=== PATIENT | male | born 1945 | race Caucasian/White ===

== ENCOUNTER 2017-08-14 23:01 | Observation (INO) | payer OTHER, BC ==
[~2017-08-14] VITALS: Ht 170.2 cm; Wt 79.5 kg
[2017-08-14 23:03] VITALS: Ht 170.2 cm; Wt 79.5 kg
[2017-08-14] MEDS ORDERED: SODIUM CHLORIDE 0.9% 500ML 500 ML IV STA (23:31)
--- NOTE | 2017-08-14 23:31 | EMERGENCY ROOM VISIT NOTE ---
History Report prepared by Christophe: Paul Madden Under the Supervision of: Dr. Edith Barone D.O. First contact with patient: 23:10 Chief Complaint: HEMATURIA Stated Complaint: BLEEDING FROM URETHRA History of Present Illness The patient is a 71 year old male who presents to the Emergency Room with complaints of intermittent hematuria beginning yesterday. The patient states that he had a TUNA procedure done 10 years ago. He notes that since then, he has intermittent hematuria when he exerts himself. He reports that the spotting typically stops on its own shortly after he stops taking his aspirin. The patient states that he also had prostate surgery 5 years ago. He notes that all last week, he had some spotting, but he reports that he has been urinating large amounts of blood since he had to push a heavy cart yesterday. The patient states that he feels as though he has to urinate, but is unable to produce large amounts of urine. He notes that he was passing clots last night, which caused him some pain, but has not passed any tonight. He reports that he has also been catheterizing himself intermittently in order to urinate, but states that tonight nothing came out of the catheter. He notes that when he pulled the catheter out, he urinated a little bit reports but that it was mostly blood. The patient states that his current symptoms feel different than they usually do. He notes that he is feeling more bloated than usual. He reports that he has a history of open heart surgery, but denies any history of urinary infections, kidney problems, and has never had to have his bladder irrigated. Pt denies dizziness, lightheadedness, headache, change in vision, fevers, chills, chest pain, shortness of breath, back pain, abdominal pain, nausea, vomiting, change in bowel movements, diarrhea, and melena. Patient states he takes an aspirin daily, no other anticoagulation. Last dose of aspirin was yesterday. Source of History: patient Onset: yesterday Position: other (penis) Quality: other (hematuria) Timing: intermittent Associated Symptoms: No fevers, No chills, No headache, No chest pain, No SOB, No nausea, No vomiting, No abdominal pain, No back pain, No melena, No diarrhea Note: The patient states that he feels as though he has to urinate but is unable to produce large amounts of urine and has been occasionally passing clots. He denies any dizziness, lightheadedness, change in vision, and change in bowel movements. Review of Systems See HPI for pertinent positives & negatives. A total of 10 systems reviewed and were otherwise negative. Past Medical & Surgical Surgical Problems: (1) History of open heart surgery (2) History of prostate surgery Family History No pertinent family history stated. Social History Smoking Status: Never Smoker Marital Status: single Occupation Status: employed Current/Historical Medications Scheduled Aspirin (Aspirin Ec), 81 MG PO QAM Cholecalciferol (Vitamin D3), 2,000 UNITS QAM Hydrochlorothiazide (Hydrochlorothiazide), 12.5 MG PO QAM Losartan Potassium (Losartan Potassium), 25 MG PO QAM Multiple Vitamins W/ Iron (Stress Formula W/Iron), 1 TAB PO QAM Potassium Chloride (Klor-Con M20), 40 MEQ PO QAM Rosuvastatin Calcium (Crestor), 10 MG PO HS Allergies Coded Allergies: Phenylephrine (Verified Allergy, Severe, "CAUSES A-FIB", 08/14/17) Physical Exam Vital Signs Date Time Temp Pulse Resp B/P (MAP) Pulse Ox O2 Delivery O2 Flow Rate FiO2 08/15/17 02:21 86 18 141/93 97 Room Air 08/14/17 23:03 36.6 93 18 162/96 94 Room Air Physical Exam GENERAL: alert, well appearing, well nourished, no distress, non-toxic EYE EXAM: normal conjunctiva, PERRL and EOM's grossly intact OROPHARYNX: no exudate, no erythema, lips, buccal mucosa, and tongue normal and mucous membranes are moist NECK: supple, no nuchal rigidity, no adenopathy, non-tender LUNGS: Clear to auscultation. Normal chest wall mechanics, no w/r/r HEART: no murmurs, S1 normal and S2 normal ABDOMEN: abdomen soft, non-tender, normo-active bowel sounds, no masses, no rebound or guarding, no palpable bladder distention. BACK: Back is symmetrical on inspection and there is no deformity, no midline tenderness, no CVA tenderness. SKIN: no rashes and no bruising UPPER EXTREMITIES: upper extremities are grossly normal. LOWER EXTREMITIES: No pitting edema. Nml ROM and pulses. NEURO EXAM: Normal sensorium, cranial nerves II-XII grossly intact, normal speech, no gross weakness of arms, no gross weakness of legs. Medical Decision & Procedures ER Provider Diagnostic Interpretation: Radiology results have been interpreted by the radiologist and reviewed by me. CT ABDOMEN & PELVIS With Contrast: Large hyperdense mass/blood clots in the inferior aspect of distended bladder. The prostate is enlarged with encroachment into bladder base. Underlying neoplasm suspected. Mild fullness of the left renal pelvis. No hydroureter. Radiologist: Chayito Augustin M.D. Laboratory Results 08/14/17 23:55 Red Blood Count 4.77, Mean Corpuscular Volume 82.8, Mean Corpuscular Hemoglobin 29.4, Mean Corpuscular Hemoglobin Concent 35.4, Mean Platelet Volume 9.6, Neutrophils (%) (Auto) 85.5, Lymphocytes (%) (Auto) 8.9, Monocytes (%) (Auto) 4.9, Eosinophils (%) (Auto) 0.5, Basophils (%) (Auto) 0.1, Neutrophils # (Auto) 9.36, Lymphocytes # (Auto) 0.98, Monocytes # (Auto) 0.54, Eosinophils # (Auto) 0.05, Basophils # (Auto) 0.01 08/15/17 05:16 08/14/17 23:55 Test 08/14/17 23:45 08/14/17 23:55 Urine Color RED Urine Appearance SL CLOUDY (CLEAR) Urine pH 7.0 (4.5-7.5) Urine Specific [place] 1.020 (1.000-1.030) Urine Protein 3+ (NEG) Urine Glucose (UA) NEG (NEG) Urine Ketones NEG (NEG) Urine Occult Blood 3+ (NEG) Urine Nitrite NEG (NEG) Urine Bilirubin NEG (NEG) Urine Urobilinogen NEG (NEG) Urine Leukocyte Esterase NEG (NEG) Urine RBC >30 /hpf (0-4) Urine WBC 0 /hpf (0-5) Urine Epithelial Cells 0-5 /lpf (0-5) Urine Bacteria NEG (NEG) White Blood Count 10.95 K/uL (4.8-10.8) Red Blood Count 4.77 M/uL (4.7-6.1) Hemoglobin 14.0 g/dL (14.0-18.0) Hematocrit 39.5 % (42-52) Mean Corpuscular Volume 82.8 fL (80-100) Mean Corpuscular Hemoglobin 29.4 pg (25-34) Mean Corpuscular Hemoglobin Concent 35.4 g/dl (32-36) Platelet Count 218 K/uL (130-400) Mean Platelet Volume 9.6 fL (7.4-10.4) Neutrophils (%) (Auto) 85.5 % Lymphocytes (%) (Auto) 8.9 % Monocytes (%) (Auto) 4.9 % Eosinophils (%) (Auto) 0.5 % Basophils (%) (Auto) 0.1 % Neutrophils # (Auto) 9.36 K/uL (1.4-6.5) Lymphocytes # (Auto) 0.98 K/uL (1.2-3.4) Monocytes # (Auto) 0.54 K/uL (0.11-0.59) Eosinophils # (Auto) 0.05 K/uL (0-0.5) Basophils # (Auto) 0.01 K/uL (0-0.2) RDW Standard Deviation 38.6 fL (36.4-46.3) RDW Coefficient of Variation 12.8 % (11.5-14.5) Immature Granulocyte % (Auto) 0.1 % Immature Granulocyte # (Auto) 0.01 K/uL (0.00-0.02) Prothrombin Time 10.2 SECONDS (9.0-12.0) Prothromb Time International Ratio 1.0 (0.9-1.1) Anion Gap 7.0 mmol/L (3-11) Est Creatinine Clear Calc Drug Dose 61.5 ml/min Estimated GFR () 75.9 Estimated GFR (Non- 65.5 BUN/Creatinine Ratio 17.4 (10-20) Calcium Level 9.2 mg/dl (8.5-10.1) Magnesium Level 2.2 mg/dl (1.8-2.4) Total Bilirubin 0.8 mg/dl (0.2-1) Aspartate Amino Transf (AST/SGOT) 20 U/L (15-37) Alanine Aminotransferase (ALT/SGPT) 32 U/L (12-78) Alkaline Phosphatase 92 U/L (45-117) Total Protein 8.0 gm/dl (6.4-8.2) Albumin 4.3 gm/dl (3.4-5.0) Globulin 3.7 gm/dl (2.5-4.0) Albumin/Globulin Ratio 1.2 (0.9-2) Laboratory results per my review. Medications Administered Medications (Trade) Dose Ordered Sig/Deborah Route Start Time Stop Time Status Last Admin Dose Admin Sodium Chloride 500 ml @ 999 mls/hr Q31M STAT IV 08/14/17 23:31 08/15/17 00:01 DC 08/15/17 00:05 999 MLS/HR Phenazopyridine HCl (Pyridium Tab) 200 mg NOW STAT PO 08/15/17 03:03 08/15/17 03:04 DC 08/15/17 03:22 200 MG Potassium Chloride (Klor-Con M10) 40 meq NOW STAT PO 08/15/17 04:37 08/15/17 04:38 DC 08/15/17 05:10 40 MEQ ECG Per My Interpretation Indication: other (previous atrial fibrillation) Rate (beats per minute): 87 Rhythm: sinus rhythm Findings: no acute ischemic change, other (Occasional PVC, normal axis, normal intervals, Q wave in lead 3) ED Course 2311: The patient was evaluated in room A11. A complete history and physical exam was performed. 2331: Sodium Chloride 500 ml @ 999 mls/hr IV 2336: I performed a bedside US of the patient's bladder. The US showed a clot in the bladder. 0224: I reevaluated and updated the patient. 0303: Phenazopyridine HCl 200mg PO 0410: I rechecked the patient. He does not want to go home. He is not comfortable with the plan of close follow up with urology as an outpatient. 0424: Upon reevaluation, the patient is stable. I discussed the findings and the treatment plan with the patient. He expresses agreement and understanding. [facility] The patient will be evaluated for further management. Medical Decision Differential diagnoses include: post procedural complication, UTI, bladder mass , kidney stone, acute renal failure, nephritic syndrome, trauma, and rhabdo. Patient with no obvious infection or renal dysfunction. Doubt nephritic syndrome/acute renal failure. Patient's H&H stable, no symptoms of anemia. Patient with no abdominal pain or back pain, no fevers or chills, no nausea or vomiting. Patient initially agreeable with plan for close follow-up with urology as an outpatient and discharge home. However then changed his mind and stated that if he was discharged he would sit in the waiting room until daylight and sign in again. Case discussed with Juana sadler for additional evaluation and treatment. I opted to not perform any additional bladder irrigation due to possible mass noted on CAT scan. Patient is able to urinate here, and is urinating frequently likely due to the overall small bladder area for urine given the size of the mass/clot seen on CAT scan and on my bedside ultrasound. Patient nontoxic appearance, vital signs stable throughout. Patient does not currently have a urologist. Medication Reconcilliation Current Medication List: was personally reviewed by me Blood Pressure Screening Patient's blood pressure: Elevated blood pressure Blood pressure disposition: Elevated BP felt to be situational Consults Time Called: [phone] Consulting Physician: Juana Mohan Returned Call: [phone] I reviewed the patient's case with Juana Mohan. He will evaluate the patient for further management. Impression Primary Impression: Hematuria Additional Impression: Bladder mass Scribe Attestation The scribe's documentation has been prepared under my direction and personally reviewed by me in its entirety. I confirm that the note above accurately reflects all work, treatment, procedures, and medical decision making performed by me. Departure Information Dispostion Being Evaluated By Hospitalist Referrals Phillip Palacios M.D. (PCP) Patient Instructions My [facility] Problem Qualifiers Primary Impression: Hematuria Hematuria type: gross Qualified Codes: R31.0 - Gross hematuria
[2017-08-14] MEDS ORDERED: CRS/10 PO (23:48)
[2017-08-14] MEDS ORDERED: CZR25 PO (23:48)
[2017-08-14] MEDS ORDERED: ASPI81TA28 PO (23:48)
[2017-08-14] MEDS ORDERED: HYDR12.55 PO (23:48)
[2017-08-14] MEDS ORDERED: MULTTAB PO (23:48)
[2017-08-14] MEDS ORDERED: CHOL2000 (23:48)
[2017-08-14] MEDS ORDERED: MCRK20 PO (23:48)
[2017-08-15] MEDS ORDERED: OPTIRAY 320 IV PRN
[2017-08-15 00:09] LABS: BASO % 0.1 %; BASO ABS # 0.01 K/uL (0-0.2); EOS % 0.5 %; EOS ABS # 0.05 K/uL (0-0.5); HEMATOCRIT 39.5 % (42-52); IG# 0.01 K/uL (0.00-0.02); LYMPH % 8.9 %; LYMPH ABS # 0.98 K/uL (1.2-3.4); MEAN CELL VOLUME 82.8 fL (80-100); MEAN CORPUSCULAR HEMOGLOBIN 29.4 pg (25-34); MEAN CORPUSCULAR HGB CONC 35.4 g/dl (32-36); MEAN PLATELET VOLUME 9.6 fL (7.4-10.4); MONO % 4.9 %; MONO ABS # 0.54 K/uL (0.11-0.59); NEUT % 85.5 %; NEUT ABS # 9.36 K/uL (1.4-6.5); PLATELET COUNT 218 K/uL (130-400); RED CELL DISTRIBUTION WIDTH CV 12.8 % (11.5-14.5); RED CELL DISTRIBUTION WIDTH SD 38.6 fL (36.4-46.3); WHITE BLOOD COUNT 10.95 K/uL (4.8-10.8)
[2017-08-15 00:28] LABS: ALBUMIN 4.3 gm/dl (3.4-5.0); CALCIUM 9.2 mg/dl (8.5-10.1); CREATININE 1.13 mg/dl (0.60-1.40); POTASSIUM 3.2 mmol/L (3.5-5.1)
[2017-08-15] MEDS ORDERED: PHENAZOPYRIDINE HCL 200 MG TAB PO STA (03:03)
[2017-08-15] MEDS ORDERED: POTASSIUM CHLORIDE 10 MEQ TABCR PO STA (04:37)
[2017-08-15 05:25] LABS: HEMATOCRIT 36.6 % (42-52); HEMOGLOBIN 13.1 g/dL (14.0-18.0)
[2017-08-15] MEDS ORDERED: IV FLUIDS COMPLETED PRN (06:00)
[2017-08-15 06:10] VITALS: O2SAT 97
--- NOTE | 2017-08-15 06:29 | DIAGNOSTIC IMAGING REPORT ---
CT ABD/PELVIS IV CONTRAST ONLY CLINICAL HISTORY: hematuria COMPARISON STUDY: None. TECHNIQUE: Following the IV administration of 92 mL of Optiray-320, CT scan of the abdomen and pelvis was performed from the lung bases to the proximal femurs. Images are reviewed in the axial, sagittal, and coronal planes. IV contrast was administered without complication. A dose lowering technique was utilized adhering to the principles of ALARA. CT DOSE: 403.08 mGy.cm FINDINGS: Lower chest: The heart is normal in size and configuration, without pericardial effusion. The lung bases and pleural spaces are clear. Liver: There is a too small to characterize 4 mm hypodensity within the left hepatic lobe. Gallbladder: Unremarkable. Spleen: Normal in size and attenuation. Pancreas: Unremarkable. Adrenal glands: Unremarkable. Kidneys: There is a 15 mm lower pole left renal cyst. There is a second 4 mm left renal hypodensity likely representing an additional renal cyst. Bowel: There are no transition zones to indicate bowel obstruction. There is no evidence of acute diverticulitis. The appendix appears normal. Peritoneum: There is no intraperitoneal free air or abdominal ascites. Vasculature: The abdominal aorta is normal in course and caliber. Adenopathy: None. Pelvic viscera: The prostate is enlarged measuring 59 mm in transverse diameter. There is a large 8.8 cm bladder mass, possibly representing hemorrhage given the reported history of gross hematuria. The underlying neoplasm cannot be excluded. Skeletal structures: No destructive osseous lesions are seen. IMPRESSION: 1. 8.8 cm bladder mass. It is not possible to differentiate hemorrhage from neoplasm. Cystoscopic evaluation is recommended 2. Prostatic enlargement Electronically signed by: Boo Smith M.D. 08/15/2017 6:28 AM Dictated Date/Time: 08/15/2017 6:23 AM
[2017-08-15] MEDS ORDERED: HYDROmorphone INJ 0.5 MG/0.5 ML SYR IV PRN (06:30)
[2017-08-15] MEDS ORDERED: PROCHLORPERAZINE INJ 5 MG in SYRINGE 4 ML IV PRN (06:30)
[2017-08-15] MEDS ORDERED: TRAMADOL HCL 50 MG TAB PO PRN (06:30)
[2017-08-15] MEDS ORDERED: ACETAMINOPHEN 325 MG TAB PO PRN (06:30)
--- NOTE | 2017-08-15 07:10 | HISTORY & PHYSICAL EXAMINATION ---
DATE OF ADMISSION: 08/14/2017 PRIMARY CARE PHYSICIAN: Phillip Palacios MD. CHIEF COMPLAINT: Hematuria. HISTORY OF PRESENT ILLNESS: History obtained from patient and ER provider. Medical history significant for history of BPH sp surgery, hypertension, paroxysmal AFib status post left atrial appendage clip procedure, history of MVR, In the last 10 years patient would have transient hematuria, spotting, clot passage following exertion. Bleeding symptoms would resolve with patient resting and stopping his aspirin for a day. Two days ago, patient noted hematuria, spotting, blood clot passage after pushing a heavy cart. Yesterday morning he stopped passing clots. Some bladder discomfort. No urinary retention. Some internal resistance on to self catheterize as per patient. No fever, no chills. No unusual weight loss. No chest pain, no shortness of breath. Patient brought to Emergency Room. Patient initially wanted to go home to just follow-up with Urology outpatient. Patient later became uncomfortable with the idea of going home. MEDICAL HISTORY: As above. SURGERIES: Urologic procedures, mitral valve replacement. HOME MEDICATIONS: Include losartan HCT, stress vitamins, cholecalciferol, aspirin. ALLERGIES: PHENYLEPHRINE. FAMILY HISTORY: Heart disease. PERSONAL SOCIAL HISTORY: Nonsmoker, no chronic intake of alcoholic beverages. 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 REVIEW OF SYSTEMS: As per HPI, all 10 systems reviewed. All other ROS negative. PHYSICAL EXAMINATION: VITAL SIGNS: Blood pressure was noted to be 161/86, pulse rate 80, RR 16, temperature 36.6, sats 97 on room air. GENERAL: Noted to be comfortable, no respiratory distress. Pleasant SKIN: Normal color, warm. HEENT: [place] palpebral conjunctivae. No ptosis. Moist buccal mucosa. NECK: Supple, nontender. CHEST: Clear to auscultation. HEART: Regular rate and rhythm, no murmur. Palpable LE pulses. ABDOMEN: Minimal hypogastric tenderness, some distention. EXTREMITIES: No edema. No gross deformity. No tenderness. NEUROLOGIC: Coherent. No gross focality. LABORATORY DATA: Hemoglobin was noted to be 14, hematocrit 39.5, white cell count 10.9, platelets noted to be 218. Sodium noted to be 138, potassium 3.2, chloride 102, CO2 28, BUN 20, creatinine 1.1, glucose 104. UA showed protein, occult blood, rbc greater than 30. CT abdomen and pelvis showed 8.8 cm bladder mass, hemorrhage versus neoplasm, prostate enlargement. Cystoscopic evaluation recommended. ASSESSMENT: 1. Hematuria. Bladder mass (clot versus tumor) on imaging Patient is hemodynamically stable. 2. History of benign prostatic hypertrophy status post surgery. 3. Hypertension, slightly elevated. 4. History of mitral valve replacement. 5. History of paroxysmal atrial fibrillation status post NYDIA clip procedure on ASA for prophylaxis. 6. Hypokalemia secondary to diuretic therapy. PLAN: OBS GMF Serial H&H. Hold aspirin for now. Urology consult regarding hematuria. Facilitate home Losartan. Replace potassium. Hold home diuretics for now. DVT prophylaxis, SCDs RE hematuria. Full code. ADDENDUM : Case discussed with Dr. Randolph, urologist on-call. She recommends discharging patient from hospital to facilitate cystoscopy at her [facility] office today if patient stable. Patient updated and was amenable to the plan of care. GRAY
[2017-08-15] MEDS ORDERED: LOSARTAN POTASSIUM 25 MG TAB PO ONE (07:15)
[2017-08-15 07:43] VITALS: BP 161/108; PULSE 84; TEMP 36.6; O2SAT 96
[2017-08-15] MEDS ORDERED: MULTIVITAMIN TAB PO SCH (09:00)
--- NOTE | 2017-08-15 09:02 | Progress Note ---
Internal Med Progress Note Date of Service: Aug 15, 2017. Provider Documentation: SUBJECTIVE: Seen and examine janis bedside Reports having hematuria, urinary retention Denies chest pain, SOB, abd pain, dizziness Feels abd is slightly bloated No other complaints OBJECTIVE: Vital Signs-as noted below Physical Exam: General Appearance:Moderately built and nourished, no apparent distress Head: normocephalic, Atraumatic Eyes: normal inspection, EOMI, PERRLA Neck: supple, Trachea midline Respiratory/Chest: Normal breath sounds, CTA Cardiovascular: S1, S2, No murmur Abdomen/GI:Soft, Non tender, Bowel sounds present, mild distention Extremities/Musculoskelatal:normal inspection, no edema Neurologic/Psych:AAOX3, grossly no focal neurological deficits Skin: normal color, warm Lab data as noted below. ASSESSMENT & PLAN: Hematuria H/O chronic hematuria in setting of Aspirin use CT ABD: suggestive of 8.8 cm possible bladder mass. (Difficult to differentiate Clot Vs Mass five Non contrast) Discussed with Urology in detail Hb stable Planned for Cystoscopic evaluation today as outpatient Monitor Hb Discussed with patient regarding getting procedure while in Hospital Vs as outpatient, Patient opted to get it done as outpatient BPH S/P surgery H/O TUNA procedure in [place] 10yrs ago and also at [facility] 5 yrs H/O Mitral Valve and Tricuspid valve repair Loop recorder in place to r/o afib ? P.afib On Aspirin at home Hypokalemia: Likely secondary to diuretics Replace and monitor Hypertension: Elevated Likely situational Continue home medications monitor DVT px: SCDs Re:hematuria Code Status: Full code Vital Signs: Date Time Temp Pulse Resp B/P (MAP) Pulse Ox O2 Delivery O2 Flow Rate FiO2 08/15/17 07:43 36.6 84 17 161/108 (125) 96 Room Air 08/15/17 06:10 88 18 161/96 97 Room Air 08/15/17 02:21 86 18 141/93 97 Room Air 08/14/17 23:03 36.6 93 18 162/96 94 Room Air Lab Results: Results Past 24 Hours Test 08/14/17 23:45 08/14/17 23:55 08/15/17 05:16 Range/Units Urine Color RED Urine Appearance SL CLOUDY CLEAR Urine pH 7.0 4.5-7.5 Urine Specific [place] 1.020 1.000-1.030 Urine Protein 3+ NEG Urine Glucose (UA) NEG NEG Urine Ketones NEG NEG Urine Occult Blood 3+ NEG Urine Nitrite NEG NEG Urine Bilirubin NEG NEG Urine Urobilinogen NEG NEG Urine Leukocyte Esterase NEG NEG Urine RBC >30 0-4 /hpf Urine WBC 0 0-5 /hpf Urine Epithelial Cells 0-5 0-5 /lpf Urine Bacteria NEG NEG White Blood Count 10.95 4.8-10.8 K/uL Red Blood Count 4.77 4.7-6.1 M/uL Hemoglobin 14.0 13.1 14.0-18.0 g/dL Hematocrit 39.5 36.6 42-52 % Mean Corpuscular Volume 82.8 80-100 fL Mean Corpuscular Hemoglobin 29.4 25-34 pg Mean Corpuscular Hemoglobin Concent 35.4 32-36 g/dl Platelet Count 218 130-400 K/uL Mean Platelet Volume 9.6 7.4-10.4 fL Neutrophils (%) (Auto) 85.5 % Lymphocytes (%) (Auto) 8.9 % Monocytes (%) (Auto) 4.9 % Eosinophils (%) (Auto) 0.5 % Basophils (%) (Auto) 0.1 % Neutrophils # (Auto) 9.36 1.4-6.5 K/uL Lymphocytes # (Auto) 0.98 1.2-3.4 K/uL Monocytes # (Auto) 0.54 0.11-0.59 K/uL Eosinophils # (Auto) 0.05 0-0.5 K/uL Basophils # (Auto) 0.01 0-0.2 K/uL RDW Standard Deviation 38.6 36.4-46.3 fL RDW Coefficient of Variation 12.8 11.5-14.5 % Immature Granulocyte % (Auto) 0.1 % Immature Granulocyte # (Auto) 0.01 0.00-0.02 K/uL Prothrombin Time 10.2 9.0-12.0 SECONDS Prothromb Time International Ratio 1.0 0.9-1.1 Sodium Level 138 136-145 mmol/L Potassium Level 3.2 3.5-5.1 mmol/L Chloride Level 102 98-107 mmol/L Carbon Dioxide Level 28 21-32 mmol/L Anion Gap 7.0 3-11 mmol/L Blood Urea Nitrogen 20 7-18 mg/dl Creatinine 1.13 0.60-1.40 mg/dl Est Creatinine Clear Calc Drug Dose 61.5 ml/min Estimated GFR () 75.9 Estimated GFR (Non- 65.5 BUN/Creatinine Ratio 17.4 10-20 Random Glucose 104 70-99 mg/dl Calcium Level 9.2 8.5-10.1 mg/dl Magnesium Level 2.2 1.8-2.4 mg/dl Total Bilirubin 0.8 0.2-1 mg/dl Aspartate Amino Transf (AST/SGOT) 20 15-37 U/L Alanine Aminotransferase (ALT/SGPT) 32 12-78 U/L Alkaline Phosphatase 92 45-117 U/L Total Protein 8.0 6.4-8.2 gm/dl Albumin 4.3 3.4-5.0 gm/dl Globulin 3.7 2.5-4.0 gm/dl Albumin/Globulin Ratio 1.2 0.9-2
--- NOTE | 2017-08-15 09:05 | Discharge Instructions ---
Discharge Instructions Date of Service Aug 15, 2017. Admission Reason for Admission: Hematuria Discharge Discharge Diagnosis / Problem: Hematuria Discharge Goals Goal(s): Decrease discomfort, Improve function Activity Recommendations Activity Limitations: per Instructions/Follow-up section Lifting Limitations: gradually increase as tolerated Exercise/Sports Limitations: gradually increase as tolerated . Instructions / Follow-Up Instructions / Follow-Up Follow up with your PCP in 1 week Follow up with your Urologist today at her office for the procedure as scheduled Seek immediate medical attention if your symptoms reoccur or worsen Current Hospital Diet Patient's current hospital diet: Discharge Diet Recommended Diet: AHA Diet (Heart Healthy) Pending Studies Studies pending at discharge: no Medical Emergencies . Who to Call and When: Medical Emergencies: If at any time you feel your situation is an emergency, please call 911 immediately. . Non-Emergent Contact Non-Emergency issues call your: Primary Care Provider, Urologist Call Non-Emergent contact if: you have a fever, your pain is not controlled, your pain is worsening, your pain is unusual for you, your pain is concerning you, you have any medication questions Seek immediate medical attention if your symptoms reoccur or worsen . . "Provider Documentation" section prepared by Robby Remy. .
[2017-08-15 09:18] VITALS: BP 161/108; PULSE 84; TEMP 36.6; O2SAT 96
--- NOTE | 2017-08-15 09:24 | Discharge Summary ---
Discharge Summary Date of Service Aug 15, 2017. Discharge Summary Admission Date: Aug 15, 2017 at 05:33 Discharge Date: Aug 15, 2017 Discharge Disposition: Home Principal Diagnosis: Hematuria Procedures: CT ABD: 1. 8.8 cm bladder mass. It is not possible to differentiate hemorrhage from neoplasm. Cystoscopic evaluation is recommended 2. Prostatic enlargement Consultations: Urology Pending Studies/Follow-Up: Follow up with your PCP in 1 week Follow up with your Urologist today at her office for the procedure as scheduled Seek immediate medical attention if your symptoms reoccur or worsen Medication Reconciliation Continued Medications: Cholecalciferol (Vitamin D3) 2,000 Unit Cap 2000 UNITS QAM for 90 Days, CAP 3 Refills Hydrochlorothiazide (Hydrochlorothiazide) 12.5 Mg Tab 12.5 MG PO QAM for 90 Days, #90 TAB 3 Refills Losartan Potassium (Losartan Potassium) 25 Mg Tab 25 MG PO QAM Multiple Vitamins W/ Iron (Stress Formula W/Iron) 1 Tab Tab 1 TAB PO QAM Potassium Chloride (Klor-Con M20) 20 Meq Tabcr 40 MEQ PO QAM Rosuvastatin Calcium (Crestor) 10 Mg Tab 10 MG PO HS, TAB Discontinued Medications: Aspirin (Aspirin Ec) 81 Mg Tab 81 MG PO QAM Admission Information HPI (per Admitting provider): CHIEF COMPLAINT: Hematuria. HISTORY OF PRESENT ILLNESS: History obtained from patient and ER provider. Medical history significant for history of BPH sp surgery, hypertension, paroxysmal AFib status post left atrial appendage clip procedure, history of MVR, In the last 10 years patient would have transient hematuria, spotting, clot passage following exertion. Bleeding symptoms would resolve with patient resting and stopping his aspirin for a day. Two days ago, patient noted hematuria, spotting, blood clot passage after pushing a heavy cart. Yesterday morning he stopped passing clots. Some bladder discomfort. No urinary retention. Some internal resistance on to self catheterize as per patient. No fever, no chills. No unusual weight loss. No chest pain, no shortness of breath. Patient brought to Emergency Room. Patient initially wanted to go home to just follow-up with Urology outpatient. Patient later became uncomfortable with the idea of going home. Physical Exam (per Admitting): PHYSICAL EXAMINATION: VITAL SIGNS: Blood pressure was noted to be 161/86, pulse rate 80, RR 16, temperature 36.6, sats 97 on room air. GENERAL: Noted to be comfortable, no respiratory distress. Pleasant SKIN: Normal color, warm. HEENT: [place] palpebral conjunctivae. No ptosis. Moist buccal mucosa. NECK: Supple, nontender. CHEST: Clear to auscultation. HEART: Regular rate and rhythm, no murmur. Palpable LE pulses. ABDOMEN: Minimal hypogastric tenderness, some distention. EXTREMITIES: No edema. No gross deformity. No tenderness. NEUROLOGIC: Coherent. No gross focality. Hospital Course Hematuria H/O chronic hematuria in setting of Aspirin use CT ABD: suggestive of 8.8 cm possible bladder mass. (Difficult to differentiate Clot Vs Mass five Non contrast) Discussed with Urology in detail Hb stable Planned for Cystoscopic evaluation today as outpatient Monitor Hb Discussed with patient regarding getting procedure while in Hospital Vs as outpatient, Patient opted to get it done as outpatient BPH S/P surgery H/O TUNA procedure in [place] 10yrs ago and also at [facility] 5 yrs H/O Mitral Valve and Tricuspid valve repair Loop recorder in place to r/o afib ? P.afib On Aspirin at home Hypokalemia: Likely secondary to diuretics Replace and monitor Hypertension: Elevated Likely situational Continue home medications monitor DVT px: SCDs Re:hematuria Code Status: Full code Total time spent on discharge = This includes examination of the patient, discharge planning, medication reconciliation, and communication with other providers. Discharge Instructions Discharge Instructions Date of Service Aug 15, 2017. Admission Reason for Admission: Hematuria Discharge Discharge Diagnosis / Problem: Hematuria Discharge Goals Goal(s): Decrease discomfort, Improve function Activity Recommendations Activity Limitations: per Instructions/Follow-up section Lifting Limitations: gradually increase as tolerated Exercise/Sports Limitations: gradually increase as tolerated . Instructions / Follow-Up Instructions / Follow-Up Follow up with your PCP in 1 week Follow up with your Urologist today at her office for the procedure as scheduled Seek immediate medical attention if your symptoms reoccur or worsen Current Hospital Diet Patient's current hospital diet: Discharge Diet Recommended Diet: AHA Diet (Heart Healthy) Pending Studies Studies pending at discharge: no Medical Emergencies . Who to Call and When: Medical Emergencies: If at any time you feel your situation is an emergency, please call 911 immediately. . Non-Emergent Contact Non-Emergency issues call your: Primary Care Provider, Urologist Call Non-Emergent contact if: you have a fever, your pain is not controlled, your pain is worsening, your pain is unusual for you, your pain is concerning you, you have any medication questions Seek immediate medical attention if your symptoms reoccur or worsen . . "Provider Documentation" section prepared by Robby Remy. . <Electronically signed by Robby Remy MD> Signed: 08/15/17 0905 Signed: The status of this report is Signed * If report status is Draft, the document has not been finalized by the responsible provider.
[2017-08-15] MEDS ORDERED: ROSUVASTATIN CALCIUM 10 MG TAB PO SCH (21:00)
[2017-08-16] MEDS ORDERED: LOSARTAN POTASSIUM 25 MG TAB PO SCH (09:00)
[2017-08-17] MEDS ORDERED: CPR500 PO ×2 (09:41)
[2017-08-17] MEDS ORDERED: FINA5TAB4 PO ×2 (09:41)
[2017-08-17] MEDS ORDERED: PHEN-775 PO ×2 (09:41)
== END 2017-08-15 09:25 | disposition home or self-care (01) ==
LOC: C.EDB 23:02 → C.MSW 08-15 05:33 → ENRESERV 08-15 05:46
PROVIDERS: ADMIT Internal Medicine; ATTEND Internal Medicine
DX: R31.0 Gross hematuria (principal); N32.9 Bladder disorder, unspecified; I10 Essential (primary) hypertension; N40.0 Benign prostatic hyperplasia without lower urinary tract symptoms; E87.6 Hypokalemia; I48.0 Paroxysmal atrial fibrillation; Z79.82 Long term (current) use of aspirin; Z95.2 Presence of prosthetic heart valve

== ENCOUNTER 2017-08-16 17:15 | Observation (INO) | payer OTHER, BC ==
[~2017-08-16] VITALS: Ht 170.2 cm; Wt 77.5 kg
[~2017-08-16 17:15] MED LIST: ASPI81TA28 PO; CEFAZOLIN 2000MG IV PUSH 15 ML IV ONE; CHOL2000; CRS/10 PO; CZR25 PO; FENTANYL CITRATE INJ 50 MCG/1 ML 2 ML VIAL ONE; HYDR12.55 PO; LACTATED RINGER'S 1000ML 1,000 ML IV SCH; LIDOCAINE HCL 2% 2 ML VIAL (20MG/ML) ONE; MCRK20 PO; MIDAZOLAM HCL 1 MG/ML 2ML VIAL ONE; MULTTAB PO; NURSING VERBAL MED ORDER ONE; ONDANSETRON INJ 2 MG/ML 2 ML VIAL ONE; PROPOFOL IV EMULSION 10 MG/ML 20 ML VIAL IV ONE
[2017-08-16 17:28] VITALS: BP 142/74; PULSE 100; TEMP 37.6; O2SAT 95; BMI 26.0
[2017-08-16] MEDS ORDERED: NURSING VERBAL MED ORDER ONE ×2 (17:30→21:15)
--- NOTE | 2017-08-16 17:39 | History and Physical ---
History & Physical Date Aug 16, 2017. Chief Complaint clot retention History of Present Illness The patient is a 71 year old male with complaints of recurrent clot urinary retention. He has had a 15 + yr history of enlarged prostate. He had a TUNA procedure 2006 and a TURP at [facility] in 2011. He has had recurrent hematuria with exertion for a few years. He began to bleed this weekend briskly and he did not stop. The he had difficulty passing some of the clots. he came to [facility] Tuesday early am and a CT scan showed a large clot in the bladder and recurrent BPH. Both kidneys are normal His hemoglobin was normal. He was sent to my clinic and we did a successful clot evacuation and osei placement and his urine ran clear the rest of yesterday from noon onward and then today until 2pm. He then began to bleed briskly again and had 2 separate clogs of the catheter with leaking around the catheter. Past Medical/Surgical History Surgical Problems: (1) History of open heart surgery (2) History of prostate surgery Additional History Hepatic Disease: No Endocrine Disorder: No Kidney Disease: No Hypertension: Yes Heart Disease: Yes Bleeding Tendencies: No Infectious Diseases: No Allergies Coded Allergies: Phenylephrine (Verified Allergy, Severe, "CAUSES A-FIB", 08/16/17) Home Medications Scheduled Cholecalciferol (Vitamin D3), 2,000 UNITS QAM Hydrochlorothiazide (Hydrochlorothiazide), 12.5 MG PO QAM Losartan Potassium (Losartan Potassium), 25 MG PO QAM Multiple Vitamins W/ Iron (Stress Formula W/Iron), 1 TAB PO QAM Potassium Chloride (Klor-Con M20), 40 MEQ PO QAM Rosuvastatin Calcium (Crestor), 10 MG PO HS Physical Examination Skin: warm/dry, no rash Eyes: sclerae normal ENT: normal ENT inspection Neck: no adenopathy, trachea midline Respiratory/Chest: lungs clear, normal breath sounds, no respiratory distress Cardiovascular: regular rate, rhythm, no edema Genitourinary - Male: normal male genitalia, normal phallus, + pertinent finding (gross blood in osei bag) Neurologic/Psych: alert, normal reflexes, oriented x 3 Diagnosis gross hematuria with clot retention ASA Classification: ASA Class III Plan of Treatment to OR for cysto evacuation of clots, and transurethral resection of prostate and osei placement. 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
[2017-08-16] MEDS ORDERED: EpHEDrine SULFATE 50MG/5ML SYR ONE (18:10)
[2017-08-16] MEDS ORDERED: BELLADONNA/OPIUM SUPP 60 MG SUPP PR ONE ×2 (18:10→19:14)
[2017-08-16] MEDS ORDERED: LABETALOL HCL IV 5 MG/ML 20ML IV PRN (19:30)
[2017-08-16] MEDS ORDERED: ATROPINE SULFATE 0.1 MG/ML 5ML SYR IV PRN (19:30)
[2017-08-16] MEDS ORDERED: ONDANSETRON INJ 2 MG/ML 2 ML VIAL IV PRN (19:30)
[2017-08-16] MEDS ORDERED: FENTANYL CITRATE INJ 50 MCG/1 ML 2 ML VIAL IV PRN (19:30)
[2017-08-16] MEDS ORDERED: PROMETHAZINE HCL INJ 12.5 MG in SODIUM CHLORIDE 0.9% 50ML 50 ML IV PRN (19:30)
[2017-08-16] MEDS ORDERED: NALOXONE HCL 0.4 MG/1 ML VIAL/CARP IV PRN (19:30)
[2017-08-16] MEDS ORDERED: FLUMAZENIL 0.1 MG/1 ML 10 ML VIAL IV PRN (19:30)
--- NOTE | 2017-08-16 19:41 | [facility] Operative Report ---
Operative Report Operative Date Aug 16, 2017. 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 His genitals were prepped and draped in sterile fashion. Time out held with team. I placed a 26 fr rigid resectoscope to bladder easily. The urethra is unremarkable. The prostate is long trilobar and occlusive. The UOs are hard to see below a large middle lobe. I aspirate out about 50mL of soft clot. He is bleeding from many points of the large prostate. I used a button to fulgurate and resect the middle and side lobes of prostate. He seems to have a large amount of anterior tissue falling in with repeated resections laterally. Some of the anterior prostate bulges into the bladder superiorly but I chose not to resect this now as he is on aspirin and I expect this area will bleed briskly with resection. Once I had hollowed out most of mid and base of prostate I spent time ensuring very thorough control of any bleeding areas. The apical tips of prostate were spared. I placed a stiff wire into bladder for catheter guide. I removed scope and placed a 20 fr 3-way osei over wire. Irrigations returned clear. I left bladder empty and concluded case. I placed a belladonna and opium suppository for post-op pain. He transferred to recovery under my escort, in stable condition. CBI was running briskly and completely clear. Plan: Home tomorrow in house overnight for cbi. 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 Any exceptions are noted below.
[2017-08-16] MEDS ORDERED: ACETAMINOPHEN 325 MG TAB PO PRN (19:45)
[2017-08-16] MEDS ORDERED: BELLADONNA/OPIUM SUPP 60 MG SUPP PR PRN (19:45)
[2017-08-16] MEDS ORDERED: HYDROCODONE/ACETAMIN 5/325MG TAB PO PRN (19:45)
[2017-08-16] MEDS ORDERED: IV FLUIDS COMPLETED PRN (20:00)
--- NOTE | 2017-08-16 20:14 | Anesthesiology Progress Note ---
Anesthesia Post Op Note Date & Time Aug 16, 2017 at 20:14 Vital Signs Pain Intensity: 0 Vital Signs Past 12 Hours Date Time Temp Pulse Resp B/P (MAP) Pulse Ox O2 Delivery O2 Flow Rate FiO2 08/16/17 20:00 78 16 121/70 98 Room Air 08/16/17 19:50 81 16 133/71 99 Room Air 08/16/17 19:40 80 16 126/69 100 Oxymask 10 08/16/17 19:30 85 16 128/72 100 Oxymask 10 08/16/17 19:23 36.9 84 12 111/65 100 Oxymask 10 08/16/17 17:28 37.6 100 20 142/74 (96) 95 Room Air Notes Mental Status: alert / awake / arousable, participated in evaluation Pt Amnestic to Procedure: Yes Nausea / Vomiting: adequately controlled Pain: adequately controlled Airway Patency, RR, SpO2: stable & adequate BP & HR: stable & adequate Hydration State: stable & adequate Anesthetic Complications: no major complications apparent
[2017-08-16 20:30] VITALS: BP 132/77; PULSE 79; TEMP 36.6; O2SAT 97
[2017-08-16 20:41] VITALS: Ht 170.2 cm; Wt 77.5 kg
[2017-08-16 20:58] VITALS: BP 135/69; PULSE 76; TEMP 36.5; O2SAT 98
[2017-08-16] MEDS ORDERED: LACTATED RINGER'S 1000ML 1,000 ML IV SCH (21:00)
[2017-08-16] MEDS ORDERED: ROSUVASTATIN CALCIUM 10 MG TAB PO SCH (21:00)
[2017-08-16] MEDS: DOCUSATE SODIUM 100 MG CAP PO SCH (21:16)
[2017-08-16 21:30] VITALS: BP 134/76; PULSE 74; TEMP 36.7; O2SAT 98
[2017-08-16 22:30] VITALS: BP 121/64; PULSE 70; TEMP 36.7; O2SAT 98
[2017-08-16 23:35] VITALS: BP 122/66; PULSE 70; TEMP 36.8; O2SAT 95
[2017-08-17 03:22] VITALS: BP 134/76; PULSE 65; TEMP 36.8; O2SAT 98
[2017-08-17] MEDS ORDERED: COUGH DROP (SUGAR FREE) LOZ 24 LOZ/1 BOX LOZ PRN (05:45)
--- NOTE | 2017-08-17 08:04 | Anesthesiology Progress Note ---
Anesthesia Post Op Note Date & Time Aug 17, 2017 at 08:04 Vital Signs Pain Intensity: 0.0 Vital Signs Past 12 Hours Date Time Temp Pulse Resp B/P (MAP) Pulse Ox O2 Delivery O2 Flow Rate FiO2 08/17/17 07:51 Room Air 08/17/17 03:22 36.8 65 16 134/76 (95) 98 Room Air 08/16/17 23:35 36.8 70 16 122/66 (84) 95 Room Air 08/16/17 23:15 Room Air 08/16/17 22:30 36.7 70 16 121/64 (83) 98 Room Air 08/16/17 21:30 36.7 74 16 134/76 (95) 98 Room Air 08/16/17 20:58 36.5 76 18 135/69 (91) 98 Room Air 08/16/17 20:49 Room Air 08/16/17 20:41 Room Air 08/16/17 20:30 36.6 79 16 132/77 (95) 97 Room Air 08/16/17 20:30 Room Air Notes Mental Status: alert / awake / arousable, participated in evaluation Pt Amnestic to Procedure: Yes Nausea / Vomiting: adequately controlled Pain: adequately controlled Airway Patency, RR, SpO2: stable & adequate BP & HR: stable & adequate Hydration State: stable & adequate Anesthetic Complications: no major complications apparent
[2017-08-17 08:05] VITALS: BP 134/68; PULSE 66; TEMP 36.4; O2SAT 96
[2017-08-17 08:09] VITALS: O2SAT 96
[2017-08-17] MEDS: DOCUSATE SODIUM 100 MG CAP PO SCH (08:26)
[2017-08-17] MEDS ORDERED: HYDROCHLOROTHIAZIDE 25 MG TAB PO SCH (09:00)
[2017-08-17] MEDS ORDERED: POTASSIUM CHLORIDE 20 MEQ TABCR PO SCH (09:00)
[2017-08-17] MEDS ORDERED: LOSARTAN POTASSIUM 25 MG TAB PO SCH (09:00)
--- NOTE | 2017-08-17 09:39 | Progress Note ---
Subjective Date of Service: Aug 17, 2017. Subjective Pt evaluation today including: conversation w/ patient, physical exam Voiding: osei catheter in place cbi ran smoothly clear to light pink all night and morning. Had a 30 minute trial off cbi and stayed clear even after walking the halls. Problem List Medical Problems: (1) Bladder mass Status: Acute (2) Hematuria Status: Acute Review of Systems Constitutional: No fever Respiratory: No cough, No shortness of breath Cardiac: No chest pain Endo: No fatigue Objective Vital Signs Date Time Temp Pulse Resp B/P (MAP) Pulse Ox O2 Delivery O2 Flow Rate FiO2 08/17/17 08:09 96 Room Air 08/17/17 08:05 36.4 66 14 134/68 (90) 96 Room Air 08/17/17 07:51 Room Air 08/17/17 03:22 36.8 65 16 134/76 (95) 98 Room Air 08/16/17 23:35 36.8 70 16 122/66 (84) 95 Room Air 08/16/17 23:15 Room Air 08/16/17 22:30 36.7 70 16 121/64 (83) 98 Room Air 08/16/17 21:30 36.7 74 16 134/76 (95) 98 Room Air 08/16/17 20:58 36.5 76 18 135/69 (91) 98 Room Air 08/16/17 20:49 Room Air 08/16/17 20:41 Room Air 08/16/17 20:30 36.6 79 16 132/77 (95) 97 Room Air 08/16/17 20:30 Room Air 08/16/17 20:00 78 16 121/70 98 Room Air 08/16/17 19:50 81 16 133/71 99 Room Air 08/16/17 19:40 80 16 126/69 100 Oxymask 10 08/16/17 19:30 85 16 128/72 100 Oxymask 10 08/16/17 19:23 36.9 84 12 111/65 100 Oxymask 10 08/16/17 17:28 37.6 100 20 142/74 (96) 95 Room Air Physical Exam General Appearance: WD/WN, no apparent distress, + thin ENT: hearing grossly normal Respiratory/Chest: no respiratory distress Abdomen: non tender Neurologic/Psychiatric: alert, normal mood/affect, oriented x 3 Skin: normal color, warm/dry, no rash Laboratory Results Last 24 Hours Test 08/17/17 05:29 Assessment and Plan POD#1 cysto clot evacuation and fulguration and resection of prostate. tolerated cbi overnight stayed clear off cbi. plan cap the cbi port and send home today with osei. He will do a void trial at home tomorrow am. Will take cipro tomorrow at cath discontinuation.
[2017-08-17] MEDS ORDERED: CPR500 PO ×2 (09:41)
[2017-08-17] MEDS ORDERED: PHEN-775 PO ×2 (09:41)
[2017-08-17] MEDS ORDERED: FINA5TAB4 PO ×2 (09:41)
--- NOTE | 2017-08-17 09:44 | Discharge Instructions ---
Discharge Instructions Date of Service Aug 17, 2017. Admission Reason for Admission: Gross Hematuria, Clot Retention, Bph W/Obstruction Discharge Discharge Diagnosis / Problem: clot retention gross hematuria, BPH with obstruction Discharge Goals Goal(s): Decrease discomfort, Improve function, Improve disease control Activity Recommendations Activity Limitations: per Instructions/Follow-up section Lifting Limitations: no more than 25 pounds (for one month) Exercise/Sports Limitations: none May Resume Sexual Activity: after two weeks Shower/Bathe: no limitations Driving or Machine Use: no limitations no heavy lifting for 4 weeks. Avoid bumpy rides on machinery for 4 weeks . Instructions / Follow-Up Instructions / Follow-Up take stool softener for 2 weeks to avoid straining with BMs use pyridium if having burning with urination. will turn urine orange take the single tab cipro when the catheter is removed morning Current Hospital Diet Patient's current hospital diet: Regular Diet, Low Lactose Diet Discharge Diet Recommended Diet: Regular Diet Fluid Restriction: None Procedures Procedures Performed: Cystoscopy, evaculation of clots, Transurethral Resection Prostate, prostate fulguration Pending Studies Studies pending at discharge: no Medical Emergencies . Who to Call and When: Medical Emergencies: If at any time you feel your situation is an emergency, please call 911 immediately. . Non-Emergent Contact Non-Emergency issues call your: Urologist ([phone]) Call Non-Emergent contact if: temperature is above 100.5 . . "Provider Documentation" section prepared by Leisa Randolph. .
[2017-08-17 09:48] VITALS: BP 134/68; PULSE 66; TEMP 36.4; O2SAT 96
--- NOTE | 2017-08-17 09:50 | Discharge Summary ---
Discharge Summary Date of Service Aug 17, 2017. Discharge Summary Admission Date: Aug 16, 2017 at 19:49 Discharge Date: Aug 17, 2017 Discharge Disposition: Home Principal Diagnosis: gross hematuria with clot retention Secondary Diagnoses/Problems: BPH with obstruction Procedures: hypertension Medication Reconciliation New Medications: Ciprofloxacin (Ciprofloxacin HCl) 500 Mg Tab 500 MG PO DAILY, #1 0 Refills Finasteride (Proscar) 5 Mg Tab 1 TAB PO DAILY for 30 Days, #30 TAB 11 Refills Phenazopyridine Hcl (Pyridium) 200 Mg Tab 200 MG PO TID PRN for Bladder pain, #9 TAB Continued Medications: Cholecalciferol (Vitamin D3) 2,000 Unit Cap 2000 UNITS QAM for 90 Days, CAP 3 Refills Hydrochlorothiazide (Hydrochlorothiazide) 12.5 Mg Tab 12.5 MG PO QAM for 90 Days, #90 TAB 3 Refills Losartan Potassium (Losartan Potassium) 25 Mg Tab 25 MG PO QAM Multiple Vitamins W/ Iron (Stress Formula W/Iron) 1 Tab Tab 1 TAB PO QAM Potassium Chloride (Klor-Con M20) 20 Meq Tabcr 40 MEQ PO QAM Rosuvastatin Calcium (Crestor) 10 Mg Tab 10 MG PO HS, TAB Admission Information HPI (per Admitting provider): Patient presented with brisk hematuria and recurrent clot retention. He had very bloody urine. He was in no acute distress as shortly before the arrival to the hospital the catheter unclogged and he drained a good amount of urine. He has seen small medium and large clots for last 3 hours. He had a clot evacuation in office yesterday morning and had stayed clear all day and night until 2pm today . Physical Exam (per Admitting): Patient looked in no distress with normal vital signs. His abdomen is soft. his lungs are clear, he is in regular rhythm legs have no edema and no calf tenderness. his leg bag is 1/3 full of bright red urine. There are long stringy clots. Hospital Course He went to OR 08/16/17 at 6pm and had a clot evac fulguration and button turp. he was run on cbi overnight which did not clog. He was held on cbi in am and remained clear. He was discharged with osei. Total time spent on discharge = This includes examination of the patient, discharge planning, medication reconciliation, and communication with other providers. Discharge Instructions osei out at home tomorrow take finasteride daily to lessen prostate bleeding
[2017-08-17] MEDS ORDERED: FINASTERIDE 5 MG TAB PO ONE (10:00)
== END 2017-08-17 11:55 | disposition home or self-care (01) ==
LOC: C.ACU 17:15 → C.3E 19:49 → ENRESERV 20:01
PROVIDERS: ADMIT Urology; ATTEND Urology
DX: N40.1 Benign prostatic hyperplasia with lower urinary tract symptoms (principal); N32.89 Other specified disorders of bladder; I10 Essential (primary) hypertension; I25.10 Atherosclerotic heart disease of native coronary artery without angina pectoris; I50.9 Heart failure, unspecified; E78.5 Hyperlipidemia, unspecified